=== PATIENT | male | born 1970 ===

== ENCOUNTER 2016-11-24 16:40 | Observation (INO) | payer OTHER ==
[~2016-11-24] VITALS: Ht 180.3 cm; Wt 99.4 kg
--- NOTE | 2016-11-24 19:11 | DIAGNOSTIC IMAGING REPORT ---
PROCEDURE: CT ABD/PELVIS WITH CONTRAST CLINICAL INDICATION: ABDOMINAL PAIN TECHNIQUE: 125 ml of Isovue 300 were injected intravenously and axial images were obtained of the entire abdomen and pelvis with sagittal and coronal reformations. COMPARISON: None. FINDINGS: ABDOMEN: Minor left basilar atelectasis. Heart size is normal. Punctate gallstone. Liver, pancreas, spleen, adrenal glands and kidneys are normal. Mild atherosclerosis of the aorta. Decompressed large bowel. PELVIS: Enlarged appendix (1.1 cm) with minor infiltration of the adjacent mesenteric fat. Normal prostate and bladder. Small fat filled left inguinal hernia. No free fluid or free air. L2 punctate sclerotic lesion, possibly a bone island. IMPRESSION: 1. Findings suggestive of acute appendicitis. 2. Punctate gallstone 3. Results discussed with Dr. Avitia All CT scans at this facility use dose modulation, iterative reconstruction, and/or weight-based dosing when appropriate to reduce radiation dose to as low as reasonably achievable.
--- NOTE | 2016-11-24 19:44 | ED ORDER SUMMARY ---
..... Patient: ERNESTO CURRAN JR OrderSheet [facility] VisitID: [id number] [place] [address] 46y, M Registration Date/Time: 11/24/2016 ORDER SHEET Weight: 90.7 kg (stated) Allergies: Sulfa Antibiotics GENERAL ORDERS: CBC w Diff Urgent (17:06 11/24/2016 Nii KNAPP) (Ack 17:07 PWeiler ER Tech1) CMP Urgent (17:11/24/2016 Nii KNAPP) (Ack 17:07 PWeiler ER Tech1) UA-Culture if indicated Urgent (17:06 11/24/2016 Nii KNAPP) (Ack 17:07 PWeiosvaldo ER Tech1) Amylase Urgent (17:06 11/24/2016 Nii KNAPP) (Ack 17:07 PWeiler ER Tech1) Lipase Urgent (17:06 11/24/2016 Nii KNAPP) (Ack 17:07 PWeiler ER Tech1) CT Abd/Pel w Cont (No) (See report) Urgent (18:41 11/24/2016 Nii KNAPP) (Ack 18:45 PWeiler ER Tech1) (19:03 MCabell) MEDICATION ORDERS: Unasyn IV 3 gm/100mL (NOW) (19:45 11/24/2016 Nii KNAPP) (20:51 SSambou R.N.) IV FLUIDS: IV Saline Lock (17:06 11/24/2016 Nii KNAPP) (17:32 SSambou R.N.) IV NS : initial bolus 1000 mL (1000 mL/hr), then 200 mL/hr for 4h (NOW); Urgent (18:40 11/24/2016 Nii KNAPP) (19:05 SSambou R.N.) Dilaudid IV 0.5 mg (HIGH ALERT MEDICATION, NOW) (18:40 11/24/2016 Nii KNAPP) (19:06 SSambsathya R.N.) Zofran IV 4 mg (NOW) (18:40 11/24/2016 Nii KNAPP) (19:06 SSambou R.N.) Protonix IVP 40mg 40 mg (Mix in NS 10ml over 2min) (18:42 11/24/2016 Nii KNAPP) (19:07 Marybeth Guardado) Flagyl IV 500 mg/100mL (NOW) (19:45 11/24/2016 Nii KNAPP) (20:27 Marybeth Guardado) ORDER SHEET NOTES: [Electronically signed by Sheriff Geo Ferguson (20:55 11/24/2016)] [Electronically signed by Dano Avitia MD (09:32 11/25/2016)] [Electronically locked/signed by Sheriff Geo Ferguson (20:55 11/24/2016)]
--- NOTE | 2016-11-24 19:44 | ED CLINICAL REPORT ---
Clinical Report - Physicians/Mid Levels [facility] [address] [place] [address] 11/24/2016 16:43 Patient: ERNESTO CURRAN JR Time Seen: 17:05. Arrived- By private vehicle. Historian- patient. HISTORY OF PRESENT ILLNESS Chief Complaint: ABDOMINAL PAIN. At its maximum, severity described as 9 / 10. When seen in the E.D., severity described as 9 / 10. Modifying factors- worsened by supine position. Relieved by upright position. It is described as burning. No radiation. It is described as located in the lower abdomen. This started today and is still present. It was abrupt in onset and has been constant. No nausea, vomiting or diarrhea. REVIEW OF SYSTEMS Last bowel movement: today. No chills, fever, sweats, calf pain or chest pain. No difficulty breathing, pedal edema or palpitations. He has had a mild cough. All systems otherwise negative, except as recorded above. PAST HISTORY PCP - None. Problems: Hallucinations. Additional Surgeries: Hernia Repair. Inguinal Hernia Repair. Medications: None. Allergies: Sulfa Antibiotics. SOCIAL HISTORY Current every day heavy tobacco smoker (cigarette)- less than 1 pack per day. No alcohol use or drug use. FAMILY HISTORY Hypertension in first-degree relative (father) and grandparent; cancer in first-degree relative (mother). ADDITIONAL NOTES The nursing notes have been reviewed. PHYSICAL EXAM Vital Signs: 11/24/2016 17:02 BP: 147/84. HR: 74. RR: 18. O2 saturation: 98%. Temp: 98 F. Pain level now: 8/10. Have been reviewed. Appearance: Alert. Eyes: Pupils equal, round and reactive to light. ENT: Pharynx normal. Neck: Normal inspection. Neck supple. CVS: Normal heart rate and rhythm. Heart sounds normal. Respiratory: No respiratory distress. Breath sounds normal. Abdomen: Soft. Moderate tenderness in the right lower quadrant and lower abdomen. Back: Normal inspection. No CVA tenderness. Skin: Skin warm and dry. Normal skin color. Normal skin turgor. Extremities: Extremities exhibit normal ROM. No calf tenderness. No lower extremity edema. LABS, X-RAYS, AND EKG Abdominal CT: IMPRESSION: 1. Findings suggestive of acute appendicitis. 2. Punctate gallstone. The study was interpreted contemporaneously by me and discussed with the radiologist. Laboratory Tests: CBC w Diff: (JOSE: 11/24/2016 17:40) ( [facility] 11/24/2016 17:53) Final results Test Result Flag Units (Reference) WHITE BLOOD COUNT 14.3 H K/uL (4.5-11.5) RED BLOOD COUNT 5.31 M/uL (4.50-5.90) HEMOGLOBIN 16.0 gm/dL (13.5-17.5) HEMATOCRIT 47.3 % (41.0-53.0) MEAN CELL VOLUME 89 fL (80-100) MEAN CORPUSCULAR HGB 30 pg (26-34) MEAN CORPUSCULAR HGB CONC 34 g/dL (31-37) RED CELL DISTRIBUTION WIDTH 13.8 % (11.6-14.8) PLATELET COUNT 328 K/uL (150-400) NEUTROPHIL % 82.0 H % (50-75) LYMPH % 12.4 L % (25-40) MONO % 4.6 % (3-14) EOSINOPHIL % 0.7 % (0-4) BASOPHIL % 0.3 % (0-2) CMP: (JOSE: 11/24/2016 17:40) ( [facility] 11/24/2016 18:12) Final results Test Result Flag Units (Reference) GLUCOSE 89 mg/dL (70-110) BUN 14 mg/dL (7-18) CREATININE 1.0 mg/dL (0.6-1.3) Estimated GFR >60 mL/min Estimated GFR- >60 mL/min Note: Persistent reduction over 3 months in eGFR<60 mL/min/1.73 m2 defines CKD. Patients with eGFR values>=60 mL/min/1.73 m2 may also have CKD if evidence ofpersistent proteinuria. Additional information may be foundat www.kidney.org. SODIUM 139 mmol/L (136-145) POTASSIUM 3.8 mmol/L (3.5-5.1) CHLORIDE 103 mmol/L (98-107) CARBON DIOXIDE 29 mmol/L (21-32) CALCIUM 8.8 mg/dL (8.5-10.1) TOTAL PROTEIN 7.6 g/dL (6.4-8.2) ALBUMIN 4.0 g/dL (3.3-5.0) BILIRUBIN, TOTAL 0.3 mg/dL (0.0-1.0) ALKALINE PHOSPHATASE 176 H U/L (46-116) AST (SGOT) 26 U/L (15-37) ALT (SGPT) 32 U/L (12-78) LIPASE 106 U/L (73-393) AMYLASE 26 U/L (25-115) . PROGRESS AND PROCEDURES Course of Care: Patient is stable. Consult obtained. Sheryl. Case discussed. Phone consult only. Will see patient in the hospital. Patient/family counseled. Old medical records ordered. Old records unavailable. Disposition orders written (in [employer] and Acute Appy orders). Disposition: Admitted. Observation. CLINICAL IMPRESSION Appendicitis. (Electronically signed by Dano Avitia MD 11/25/2016 9:32)
--- NOTE | 2016-11-24 19:44 | ED ORDER SUMMARY ---
..... Patient: ERNESTO CURRAN JR OrderSheet [facility] VisitID: [id number] [place] [address] 46y, M Registration Date/Time: 11/24/2016 ORDER SHEET Weight: 90.7 kg (stated) Allergies: Sulfa Antibiotics GENERAL ORDERS: CBC w Diff Urgent (17:06 11/24/2016 Nii KNAPP) (Ack 17:07 PWeiler ER Tech1) CMP Urgent (17:11/24/2016 Nii KNAPP) (Ack 17:07 PWeiler ER Tech1) UA-Culture if indicated Urgent (17:06 11/24/2016 Nii KNAPP) (Ack 17:07 PWeiosvaldo ER Tech1) Amylase Urgent (17:06 11/24/2016 Nii KNAPP) (Ack 17:07 PWeiler ER Tech1) Lipase Urgent (17:06 11/24/2016 Nii KNAPP) (Ack 17:07 PWeiler ER Tech1) CT Abd/Pel w Cont (No) (See report) Urgent (18:41 11/24/2016 Nii KNAPP) (Ack 18:45 PWeiler ER Tech1) (19:03 MCabell) MEDICATION ORDERS: Unasyn IV 3 gm/100mL (NOW) (19:45 11/24/2016 Nii KNAPP) (20:51 SSambou R.N.) IV FLUIDS: IV Saline Lock (17:06 11/24/2016 Nii KNAPP) (17:32 SSambou R.N.) IV NS : initial bolus 1000 mL (1000 mL/hr), then 200 mL/hr for 4h (NOW); Urgent (18:40 11/24/2016 Nii KNAPP) (19:05 SSambou R.N.) Dilaudid IV 0.5 mg (HIGH ALERT MEDICATION, NOW) (18:40 11/24/2016 Nii KNAPP) (19:06 SSambsathya R.N.) Zofran IV 4 mg (NOW) (18:40 11/24/2016 Nii KNAPP) (19:06 SSambou R.N.) Protonix IVP 40mg 40 mg (Mix in NS 10ml over 2min) (18:42 11/24/2016 Nii KNAPP) (19:07 Marybeth Guardado) Flagyl IV 500 mg/100mL (NOW) (19:45 11/24/2016 Nii KNAPP) (20:27 Marybeth Guardado) ORDER SHEET NOTES: [Electronically signed by Sheriff Geo Ferguson (20:55 11/24/2016)] [Electronically signed by Dano Avitia MD (09:32 11/25/2016)] [Electronically locked/signed by Sheriff Geo Ferguson (20:55 11/24/2016)]
--- NOTE | 2016-11-24 19:44 | ED NURSING NOTES ---
Clinical Report - Nurses [facility] [place] [address] 11/24/2016 16:43 Patient: ERNESTO CURRAN JR TRIAGE Triage time 17:02. Chief Complaint: ABDOMINAL PAIN. --17:07 Sheriff Ferguson R.N. 17:02 11/24/16. BP: 147/84. HR: 74. RR: 18. O2 saturation: 98%. Temp: 98 F. Pain level now: 01/14. --17:07 Sheriff Ferguson R.N. Weight: 90.7 kg stated. Height/Length: 71 inches Per Patient. BMI: 27.9. --17:06 Sheriff Ferguson R.N. Medications None. --17:03 Sheriff Ferguson R.N. Allergies Sulfa Antibiotics. --17:04 Sheriff Ferguson R.N. History Arrived by private vehicle. Historian: patient. Unaccompanied. ( Started at 10am after eating breakfast. No nausea and vomiting.). SURGERY HX: Hernia repair. Inguinal hernia repair. ( Right jaw). SOCIAL HX: Light tobacco smoker- less than 1/2 a pack per day. No alcohol use or drug use. FALL RISK ASSESSMENT: Fall risk assessment completed. No fall risk identified. NUTRITIONAL RISK ASSESSMENT: The nutritional risk assessment revealed no deficiencies. FUNCTIONAL ASSESSMENT: Functional assessment: no impairments noted. LEARNING NEEDS ASSESSMENT: The learning needs assessment revealed no barriers. SKIN INTEGRITY ASSESSMENT: Skin integrity risk assessment completed. No skin integrity risk identified. --17:07 Sheriff Ferguson R.N. PROBLEMS: Hallucinations. --17:05 Sheriff Ferguson R.N. Interventions ID band on patient. --17:07 Sheriff Ferguson R.N. PHYSICAL ASSESSMENT Ambulatory to room. GENERAL / NEURO / PSYCH: Alert. Oriented X 4. Appears in no acute distress. HEENT: Mucous membranes are pink. RESPIRATORY: Respirations not labored. CVS: Capillary refill less than 2 seconds. SKIN: Skin is warm and dry. --17:08 Sheriff Ferguson R.N. NURSING PROGRESS NOTES Two patient identifiers checked. Call light placed in reach. Side rails up x 2. Bed placed in lowest position. Brakes of bed on. --17:08 Sheriff Ferguson R.N. 17:32 11/24/2016 Site #1 started via IV in the right wrist with an 20g angiocath, with aseptic technique and good blood return; one attempt. Blood drawn: rainbow set. Labeled in the presence of the patient and sent to the lab. Saline lock flushed with 10 mL saline. --17:32 Sheriff Ferguson R.N. 19:05 11/24/2016 Started bag #1 1000 mL IV Fluids IV NS (Saline); at 1000 mL/hr over 1 hour(s) via site #1. Allergies verified and confirmed 5 rights. IV patency established. IV site checked: no pain, redness, or swelling. IV flushed thoroughly pre- and post-medication administration. --19: Sheriff Ferguson R.N. 19:11/24/2016 Dilaudid (HYDROmorphone HCl PF) IVP 0.5 mg given over 1 minute(s) via site #1. Allergies verified, confirmed 5 rights and sedative warning given to the patient. IV patency established. IV site checked: no pain, redness, or swelling. IV flushed thoroughly pre- and post-medication administration. IVP given by RN. --19: Sheriff Ferguson R.N. 19:11/24/2016 Zofran (Ondansetron HCl) IVP 4 mg given over 1 hour(s) via site #1. Allergies verified and confirmed 5 rights. IV patency established. IV site checked: no pain, redness, or swelling. IV flushed thoroughly pre- and post-medication administration. --19: Sheriff Ferguson R.N. 19:11/24/2016 PROTONIX 40MG (Pantoprazole Sodium) IVP 40 mg given over 2 minute(s) via site #1. Allergies verified and confirmed 5 rights. IV patency established. IV site checked: no pain, redness, or swelling. IV flushed thoroughly pre- and post-medication administration. IVP given by RN. --19:07 Sheriff Ferguson R.N. ( assisted pt to ambulate to restroom, urine sample requested. pt verbalizes understanding). --20:18 Shameka Akhtar R.N. 20:27 11/24/2016 Started 500 mg of Flagyl (MetroNIDAZOLE in NaCl) IVPB in bag #1 100 mL; at 100 mL/hr over 1 hour(s) via site #1 via IV pump. Allergies verified and confirmed 5 rights. IV patency established. IV site checked: no pain, redness, or swelling. IV flushed thoroughly pre- and post-medication administration. --20:27 Sheriff Ferguson R.N. 20:51 11/24/2016 Started 3 gm of Unasyn (Ampicillin-Sulbactam Sodium) IVPB in bag #1 100 mL; at 200 mL/hr over 30 minute(s) via site #1 via IV pump. Allergies verified and confirmed 5 rights. IV patency established. IV site checked: no pain, redness, or swelling. IV flushed thoroughly pre- and post-medication administration. --20:51 Sheriff Ferguson R.N. DISPOSITION / DISCHARGE Admitted to the Critical Care Unit (2050 PM). Transported via stretcher by transport team with IV. Report was given to a nurse via a phone call. Report included patient's care, treatment, medications, reviewed medication reconcilliation, and condition (including any recent changes or anticipated changes). All questions were answered. Report was acknowledged and care was transferred. Patient's personal items include: shirt, pants, socks and shoes; items were given to the patient and transported with the patient. --20:55 Sheriff Ferguson R.N. 20:51 11/24/16. BP: 137/85. HR: 73. RR: 20. O2 saturation: 98%. Temp: 98.2 F. --20:55 Sheriff Ferguson R.N. Locked/Released at 11/24/2016 20:55 by Sheriff Ferguson R.N.
[2016-11-24 21:00] VITALS: BP 128/66
[2016-11-24] MEDS ORDERED: ESCITALOPRAM OX10 MG PO (21:46)
[2016-11-24] MEDS ORDERED: IMITREX25 MG PO (21:46)
[2016-11-24] MEDS ORDERED: RISPERDAL0.25 MG PO (21:47)
[2016-11-24 23:44] VITALS: BP 101/59
[2016-11-25] VITALS (8 sets, daily range): BP systolic 94–120; BP diastolic 57–81
--- NOTE | 2016-11-25 09:32 | ED MAR SUMMARY ---
..... Medication Administration Record [facility] [address] [place] [address] Patient: ERNESTO CURRAN Visit ID: [id number] 46y, M Weight: 90.7 kg Height/Length: 71 in BMI: 27.9 ALLERGIES: Sulfa Antibiotics Start 19:11/24/2016 Sheriff Ferguson R.N. Medication Administered: IV NS (SALINE), Dose: IV Fluids over 1 hour(s), Rate: 1000 mL/hr, Dispensed: 1000 mL bag, Site: #1 right wrist. Medication Ordered: IV NS : initial bolus 1000 mL (1000 mL/hr), then 200 mL/hr for 4h (NOW); Urgent. Given :11/24/2016 Sheriff Ferguson R.N. Medication Administered: DILAUDID [IVP] (HYDROMORPHONE HCL PF), Dose: 0.5 mg IVP over 1 minute(s), Site: #1 right wrist. Medication Ordered: Dilaudid IV 0.5 mg (HIGH ALERT MEDICATION, NOW). Given 19:11/24/2016 Sheriff Ferguson R.N. Medication Administered: ZOFRAN [IVP] (ONDANSETRON HCL), Dose: 4 mg IVP over 1 hour(s), Site: #1 right wrist. Medication Ordered: Zofran IV 4 mg (NOW). Given 19:11/24/2016 Sheriff Ferguson R.N. Medication Administered: PROTONIX 40MG [IVP] (PANTOPRAZOLE SODIUM), Dose: 40 mg IVP over 2 minute(s), Site: #1 right wrist. Medication Ordered: Protonix IVP 40mg 40 mg (Mix in NS 10ml over 2min). Start 20:27 11/24/2016 Sheriff Ferguson R.N. Medication Administered: FLAGYL [IVPB] (METRONIDAZOLE IN NACL), Dose: 500 mg IVPB over 1 hour(s), Rate: 100 mL/hr, Dispensed: 100 mL bag, Site: #1 right wrist. Medication Ordered: Flagyl IV 500 mg/100mL (NOW). Start 20:51 11/24/2016 Sheriff Ferguson R.N. Medication Administered: UNASYN [IVPB] (AMPICILLIN-SULBACTAM SODIUM), Dose: 3 gm IVPB over 30 minute(s), Rate: 200 mL/hr, Dispensed: 100 mL bag, Site: #1 right wrist. Medication Ordered: Unasyn IV 3 gm/100mL (NOW).
--- NOTE | 2016-11-25 09:32 | ED MED RECONCILIATION SUMMARY ---
Patient: ERNESTO CURRAN JR Medication Reconciliation Report [facility] VisitID: [id number] [address] [place] [address] 46y, M Registration Date/Time: 11/24/2016 Weight: 90.7 kg Height/Length: 71 in. BMI: 27.9 ALLERGIES: Sulfa Antibiotics The patient's Home Medications are listed below: NONE. The source(s) of the original Home Medication information: Not obtained. The following Medications were given to the patient in the Emergency Department: IV NS IV Fluids bolus 0, then 1000 mL/hr, administered: 11/24/2016 7:05:00 PM Dilaudid [IVP] IVP 0.5 mg, administered: 11/24/2016 7:06:00 PM Zofran [IVP] IVP 4 mg, administered: 11/24/2016 7:06:00 PM PROTONIX 40MG [IVP] IVP 40 mg, administered: 11/24/2016 7:07:00 PM Flagyl [IVPB] IVPB bolus 0, then 500 mg 100 mL/hr, administered: 11/24/2016 8:27:00 PM Unasyn [IVPB] IVPB bolus 0, then 3 gm 200 mL/hr, administered: 11/24/2016 8:51:00 PM The following Medications were prescribed to the patient: None.
--- NOTE | 2016-11-25 09:32 | ED MED RECONCILIATION SUMMARY ---
Patient: ERNESTO CURRAN JR Medication Reconciliation Report [facility] VisitID: [id number] [address] [place] [address] 46y, M Registration Date/Time: 11/24/2016 Weight: 90.7 kg Height/Length: 71 in. BMI: 27.9 ALLERGIES: Sulfa Antibiotics The patient's Home Medications are listed below: NONE. The source(s) of the original Home Medication information: Not obtained. The following Medications were given to the patient in the Emergency Department: IV NS IV Fluids bolus 0, then 1000 mL/hr, administered: 11/24/2016 7:05:00 PM Dilaudid [IVP] IVP 0.5 mg, administered: 11/24/2016 7:06:00 PM Zofran [IVP] IVP 4 mg, administered: 11/24/2016 7:06:00 PM PROTONIX 40MG [IVP] IVP 40 mg, administered: 11/24/2016 7:07:00 PM Flagyl [IVPB] IVPB bolus 0, then 500 mg 100 mL/hr, administered: 11/24/2016 8:27:00 PM Unasyn [IVPB] IVPB bolus 0, then 3 gm 200 mL/hr, administered: 11/24/2016 8:51:00 PM The following Medications were prescribed to the patient: None.
--- NOTE | 2016-11-25 09:32 | ED MAR SUMMARY ---
..... Medication Administration Record [facility] [address] [place] [address] Patient: ERNESTO CURRAN Visit ID: [id number] 46y, M Weight: 90.7 kg Height/Length: 71 in BMI: 27.9 ALLERGIES: Sulfa Antibiotics Start 19:11/24/2016 Sheriff Ferguson R.N. Medication Administered: IV NS (SALINE), Dose: IV Fluids over 1 hour(s), Rate: 1000 mL/hr, Dispensed: 1000 mL bag, Site: #1 right wrist. Medication Ordered: IV NS : initial bolus 1000 mL (1000 mL/hr), then 200 mL/hr for 4h (NOW); Urgent. Given :11/24/2016 Sheriff Ferguson R.N. Medication Administered: DILAUDID [IVP] (HYDROMORPHONE HCL PF), Dose: 0.5 mg IVP over 1 minute(s), Site: #1 right wrist. Medication Ordered: Dilaudid IV 0.5 mg (HIGH ALERT MEDICATION, NOW). Given 19:11/24/2016 Sheriff Ferguson R.N. Medication Administered: ZOFRAN [IVP] (ONDANSETRON HCL), Dose: 4 mg IVP over 1 hour(s), Site: #1 right wrist. Medication Ordered: Zofran IV 4 mg (NOW). Given 19:11/24/2016 Sheriff Ferguson R.N. Medication Administered: PROTONIX 40MG [IVP] (PANTOPRAZOLE SODIUM), Dose: 40 mg IVP over 2 minute(s), Site: #1 right wrist. Medication Ordered: Protonix IVP 40mg 40 mg (Mix in NS 10ml over 2min). Start 20:27 11/24/2016 Sheriff Ferguson R.N. Medication Administered: FLAGYL [IVPB] (METRONIDAZOLE IN NACL), Dose: 500 mg IVPB over 1 hour(s), Rate: 100 mL/hr, Dispensed: 100 mL bag, Site: #1 right wrist. Medication Ordered: Flagyl IV 500 mg/100mL (NOW). Start 20:51 11/24/2016 Sheriff Ferguson R.N. Medication Administered: UNASYN [IVPB] (AMPICILLIN-SULBACTAM SODIUM), Dose: 3 gm IVPB over 30 minute(s), Rate: 200 mL/hr, Dispensed: 100 mL bag, Site: #1 right wrist. Medication Ordered: Unasyn IV 3 gm/100mL (NOW).
--- NOTE | 2016-11-25 09:32 | ED DISCHARGE INSTRUCTIONS ---
Patient: ERNESTO CURRAN JR General Instructions [facility] VisitID: [id number] [address] [place] [address] 46y, M Registration Date/Time: 11/24/2016 Appendicitis. (Electronically signed by Dano Avitia MD 11/25/2016 9:32)
--- NOTE | 2016-11-25 09:32 | ED DISCHARGE INSTRUCTIONS ---
Patient: ERNESTO CURRAN JR General Instructions [facility] VisitID: [id number] [address] [place] [address] 46y, M Registration Date/Time: 11/24/2016 Appendicitis. (Electronically signed by Dano Avitia MD 11/25/2016 9:32)
[2016-11-25] MEDS ORDERED: NORCO1 TA1 PO (13:12)
--- NOTE | 2016-11-25 13:13 | Provider's Discharge Care Plan ---
Problem, Goal, Plan Problem List 1. Appendicitis
--- NOTE | 2016-11-25 13:13 | Provider's Discharge Care Plan ---
Problem, Goal, Plan Problem List 1. Appendicitis
--- NOTE | 2016-11-25 13:48 | CONSULTATION REPORT ---
DATE OF CONSULTATION: 11/25/2016 CHIEF COMPLAINT: 1. Right lower quadrant abdominal pain HISTORY OF PRESENT ILLNESS: The patient is a 46-year-old man who presented to the emergency department yesterday evening. He began experiencing mid abdominal vague discomfort and burning sensation at about 12:00 yesterday. This got worse and localized more to the right lower quadrant. He reports no diarrhea. He reports no vomiting. He has not had previous abdominal surgery. MEDICAL/SURGICAL HISTORY: Medical problems: None. Past surgery: Right inguinal hernia repair in 2008 and removal of metal foreign body, right face. He also reports that he had a "violent" awakening from anesthesia in his previous experiences. MEDICATIONS: 1. He takes oral Sumatriptan for migraines, dosage unknown. 2. The patient reports in the past he has been on risperidone, but is currently out of this medication. ALLERGIES: 1. SULFA WHICH CAUSED HIVES. 2. HE ALSO DEVELOPED NAUSEA AND VOMITING WITH ONIONS. 3. SYNCOPE AFTER CONSUMING GARLIC. SOCIAL HISTORY: The patient is single and was recently incarcerated in [place] and was released from that correction on 11/03/2016. He smokes about 1/2 pack per day of cigarettes. He does not take alcohol. He is currently working at the local [employer]. He is a former meth user, who is now clean for a number of years. FAMILY HISTORY: His mother had some type of unknown cancer, and he is unaware of the rest of his history, as he is currently estranged from his family. REVIEW OF SYSTEMS: Greater than 12-point review of systems was obtained. The patient reported no additional symptoms other than the ones mentioned in the history of present illness, including eyesight, hearing, sinus problems, pulmonary problems such as cough, dyspnea, hemoptysis, cardiac palpitations or chest pain, diarrhea, constipation, hematochezia, hematemesis extremity problems. PHYSICAL EXAMINATION: GENERAL: He is alert and cooperative. He has multiple tattoos. He is oriented to time and place and speaks appropriately. HEENT: His ears and nose demonstrate no gross external lesions. Eyes are equal. He is anicteric. NECK: Without palpable masses or thyromegaly. CHEST: Clear to auscultation without rales. HEART: Regular, without murmur or gallop. ABDOMEN: Reveals localized tenderness in the right lower quadrant, with involvement of involuntary guarding on palpation at McBurney's point. EXTREMITIES: Symmetric, and he appears to move without restriction. VITAL SIGNS: Temperature 98.2, pulse of 69, respirations 18, blood pressure 94/ 57, 98% room air saturation. LAB/IMAGING: Laboratory tests, his white count was elevated at 14.3, hemoglobin and hematocrit 16 and 47. Chemistries, including electrolytes, are normal, with a slightly elevated alkaline phosphatase. His amylase and lipase are normal. Urinalysis reveals no significant red cells or white cells. His CT scan demonstrates an enlarged appendix with minor inflammatory infiltrate, with the impression of findings suggestive of acute appendicitis. He has a punctate gallstone. IMPRESSION: 1. Acute appendicitis PLAN: I recommended laparoscopic appendectomy. I talked to the patient about alternatives, benefits and risks, including antibiotic therapy without surgery, as well as risks of infection, bleeding, scar, pain, damage to local structures and alternative diagnoses being present, besides appendix, as well as the remote possibility of open surgery. The patient would like to proceed with surgery as described to him.
--- NOTE | 2016-11-25 13:55 | OPERATIVE REPORT ---
DATE OF SURGERY: 11/25/2016 SURGEON: Oswald Saucedo MD PREOPERATIVE DIAGNOSIS: 1. Acute appendicitis POSTOPERATIVE DIAGNOSIS: 1. Acute appendicitis PROCEDURE PERFORMED: 1. Laparoscopic appendectomy ANESTHESIA: General. INDICATIONS: The patient is a 46-year-old man presenting with a 1-day history of worsening right lower quadrant abdominal pain. SURGICAL TECHNIQUE: The patient was taken to the operating room, where a general anesthetic was administered and the patient prepped and draped in usual sterile fashion. There was no Rogers catheter placed. An orogastric tube, IV antibiotics, and sequential compression devices were in place. Local anesthetic of 0.5% Marcaine was infiltrated and an intraumbilical incision made. A 10 mm cannula was passed after insufflation with a Veress needle. The appendix was visualized and found to be inflamed, but not perforated. The mesoappendix was taken down with the Thunderbeat device, and 2 additional 5 mm cannulas were placed in the lower midline for the surgery. The 5 mm scope was transferred to the lowest one. After taking down the mesoappendix, the base of the appendix was clipped with 2 Hem-o-Edna clips and the specimen side clipped. The appendix was partially transected and bipolar cautery applied to the exposed mucosa. The appendix was fully transected and drawn out through the 10 mm port. Marcaine was instilled, gas was evacuated, and the umbilical site closed with a single interrupted subcuticular 4-0 Vicryl suture. Steri-Strips and dressings were applied, and the patient left in good condition.
== END 2016-11-25 17:45 | disposition home or self-care (01) ==
LOC: ED SRH 16:40 → TRANS SRH 19:51 → CC SRH 19:51
PROVIDERS: ADMIT Surgery
PROC: 0DTJ4ZZ Resection of Appendix, Percutaneous Endoscopic Approach (ICD-10-PCS; principal; 2016-11-25 12:00)
DX: K35.80 Unspecified acute appendicitis (principal); F17.210 Nicotine dependence, cigarettes, uncomplicated
CPT/HCPCS: 29229; 29250; 29259; 29264; 50002; 60001; 70002; 80102; 80212; 80248; 82897; 83343; 83587; 83919; 83982; 84038; 90004; 90100; 90469; 92132; 92235; 92530; 95059

== ENCOUNTER 2016-12-25 14:41 | Emergency (ER) | payer OTHER ==
[~2016-12-25 14:41] MED LIST: ESCITALOPRAM OX10 MG PO; IMITREX25 MG PO; NORCO1 TA1 PO; RISPERDAL0.25 MG PO
--- NOTE | 2016-12-25 15:51 | DIAGNOSTIC IMAGING REPORT ---
PROCEDURE: XR CHEST 1 VIEW INDICATION: CHEST PAIN TECHNIQUE: Single view chest. 1524 hours COMPARISON: None. FINDINGS: The cardiomediastinal contour and central vasculature are normal. Mild left base atelectatic change. The lungs are otherwise clear without focal consolidation, pleural effusion or pneumothorax. The osseous structures are intact. IMPRESSION: 1. No evidence of acute cardiopulmonary disease.
--- NOTE | 2016-12-25 17:17 | ED CLINICAL REPORT ---
Clinical Report - Physicians/Mid Levels [facility] [address] [place] [address] 12/25/2016 14:44 Patient: ERNESTO CURRAN JR Time Seen: 14:55; initial patient contact, initial documentation, patient care assumed. Arrived- By private vehicle. Historian- patient. HISTORY OF PRESENT ILLNESS Chief Complaint: CHEST PAIN and DISCOMFORT. At its maximum, severity described as severe. When seen in the E.D., it was gone. Modifying factors. Not worsened by anything. Not relieved by anything. It is described as "pain" and it is described as located in the central chest area and radiating to the left hand. This started about 2 - 3 days ago and is now gone. Onset during sleep; happens at night when laying down. No nausea, vomiting, difficulty breathing or diaphoresis. No additional chest pain. Similar symptoms previously: None. Recent medical care: Not recently seen/assessed. REVIEW OF SYSTEMS All systems otherwise negative, except as recorded above. PAST HISTORY See nurses notes. PROBLEMS: Appendicitis. Hallucinations. --14:53 Vera Goff R.N. ADDITIONAL SURGERIES: Appendectomy. Cheek. Hernia Repair. Inguinal Hernia Repair. --14:53 Vera Goff R.N. SOCIAL HISTORY Heavy tobacco smoker. No alcohol use or drug use. Is a local resident. FAMILY HISTORY History of heart disease in multiple family members in first-degree relative (father). ADDITIONAL NOTES The nursing notes have been reviewed with agreement regarding the chief complaint, HPI, ROS, PMH and patient medications and allergies. PHYSICAL EXAM Vital Signs: 12/25/2016 14:49 BP: 117/78. HR: 108. RR: 18. O2 saturation: 96%. Temp: 97.6 F. Pain level now: 0/10. Have been reviewed as abnormal and appear to be correct. Blood pressure normal. Tachycardic. Respiratory rate normal. Temperature normal. Oxygen saturation normal. Appearance: Alert. Oriented X3. No acute distress. Eyes: Pupils equal, round and reactive to light. Eyes normal inspection. Neck: Normal inspection. Neck supple. CVS: Heart rate / rhythm abnormal. Tachycardia (ventricular rate = 110). Heart sounds normal. Pulses normal. Respiratory: No respiratory distress. Breath sounds normal. Chest nontender. Abdomen: Soft and nontender. Back: Normal external inspection. Skin: Skin warm and dry. Normal skin color. No rash. Normal skin turgor. Extremities: Extremities exhibit normal ROM. No lower extremity edema. Neuro: Oriented X 3. No motor deficit. No sensory deficit. LABS, X-RAYS, AND EKG EKG: EKG time: (1452). No acute process. No acute ischemia. Regular narrow-complex tachycardia (111 ventricular rate). Sinus tachycardia. Normal EKG. The study has been interpreted contemporaneously by me (and Dr Coronado). The EKG appears to be a good tracing. Chest X-ray: Normal Chest X-Ray. (IMPRESSION: 1. No evidence of acute cardiopulmonary disease. Electronically Final signed by:Carlotta Parikh MD 12/25/2016 3:51:17 PM). The X-rays were interpreted by the radiologist and contemporaneously by me. Interpretation time: 17:17. Laboratory Tests: CBC w Diff: (JOSE: 12/25/2016 15:05) ( MsgRcvd 12/25/2016 15:15) Final results Test Result Flag Units (Reference) WHITE BLOOD COUNT 8.0 K/uL (4.5-11.5) RED BLOOD COUNT 5.21 M/uL (4.50-5.90) HEMOGLOBIN 15.7 gm/dL (13.5-17.5) HEMATOCRIT 46.5 % (41.0-53.0) MEAN CELL VOLUME 89 fL (80-100) MEAN CORPUSCULAR HGB 30 pg (26-34) MEAN CORPUSCULAR HGB CONC 34 g/dL (31-37) RED CELL DISTRIBUTION WIDTH 13.5 % (11.6-14.8) PLATELET COUNT 311 K/uL (150-400) NEUTROPHIL % 70.6 % (50-75) LYMPH % 22.8 L % (25-40) MONO % 5.1 % (3-14) EOSINOPHIL % 1.1 % (0-4) BASOPHIL % 0.4 % (0-2) [id number]: (JOSE: 12/25/2016 15:05) ( [facility] 12/25/2016 15:29) Final results Test Result Flag Units (Reference) D-DIMER QUANTITATIVE 0.31 ug/mLFEU (0.27-0.52) The primary value of this quantitative assay relates toits negative predictive value (i.e. exclusion) of pulmonaryembolism/deep vein thrombosis/DIC.Elevated levels of d-dimer may also occur with:, age, cancer, inflammation, liver disease,post-op, infection, hematoma, coronary disease, peripheralarteriopathy, bleeding disorders and thrombolytic treatment.Results should be correlated with other clinical andradiological data.Testing Methodology: Latex Immunoassay CPK: (JOSE: 12/25/2016 16:25) ( [facility] 12/25/2016 16:49) Final results Test Result Flag Units (Reference) CPK 124 U/L (24-260) TROPONIN I <0.05 L ng/mL (0.00-1.5) TROPONIN REFERENCE RANGE:<0.1 NEGATIVE0.1-1.5 INDETERMINANT>1.5 POSITIVE CMP: (JOSE: 12/25/2016 15:05) ( [facility] 12/25/2016 15:30) Final results Test Result Flag Units (Reference) GLUCOSE 163 H mg/dL (70-110) BUN 10 mg/dL (7-18) CREATININE 1.2 mg/dL (0.6-1.3) Estimated GFR >60 mL/min Estimated GFR- >60 mL/min Note: Persistent reduction over 3 months in eGFR<60 mL/min/1.73 m2 defines CKD. Patients with eGFR values>=60 mL/min/1.73 m2 may also have CKD if evidence ofpersistent proteinuria. Additional information may be foundat www.kidney.org. SODIUM 141 mmol/L (136-145) POTASSIUM 3.9 mmol/L (3.5-5.1) CHLORIDE 106 mmol/L (98-107) CARBON DIOXIDE 21 mmol/L (21-32) CALCIUM 8.6 mg/dL (8.5-10.1) TOTAL PROTEIN 7.1 g/dL (6.4-8.2) ALBUMIN 3.8 g/dL (3.3-5.0) BILIRUBIN, TOTAL 0.4 mg/dL (0.0-1.0) ALKALINE PHOSPHATASE 142 H U/L (46-116) AST (SGOT) 24 U/L (15-37) ALT (SGPT) 33 U/L (12-78) CPK 129 U/L (24-260) TROPONIN I <0.05 L ng/mL (0.00-1.5) TROPONIN REFERENCE RANGE:<0.1 NEGATIVE0.1-1.5 INDETERMINANT>1.5 POSITIVE . PROGRESS AND PROCEDURES Course of Care: 1630. pt updated on current results and reasoning for 2nd set of enzymes, pt resting quietly, nad, resp even and unlabored, vs stable. 12/25/2016 16:07 BP: 115/71. HR: 97. RR: 21. O2 saturation: 96%. Pain level now: 0/10. Vital Signs: have been reviewed as normal and appear to be correct. Patient counseled in person regarding the patient's stable condition, test results and diagnosis. 17:13. Differential Diagnosis: I considered muscle strain, costochondritis, myositis, myocardial infarction, intermediate coronary syndrome, unstable angina, angina, aortic dissection, mitral valve prolapse, pericarditis, palpitations, pulmonary embolism, pneumonia, pneumothorax, lung cancer, gastroesophageal reflux disease, esophagitis and esophageal spasm as a possible cause of chest pain in this patient. This is a partial list of diagnoses considered. (anxiety, substance abuse). Disposition: Discharged home in good and unchanged condition (17:17). Condition: good and stable. CLINICAL IMPRESSION Chest pain characterized as "discomfort" .12 lead EKG performed. INSTRUCTIONS Warnings: GENERAL WARNINGS: Return or contact your physician immediately if your condition worsens or changes unexpectedly, if not improving as expected, or if other problems arise. SPECIFICALLY, return if you develop chest, neck, jaw, shoulder, arm, or back pain, difficulty breathing, a fluttering sensation in your chest, lightheadedness, fainting, excessive fatigue, or sudden sweating. Follow-up: Follow up with your doctor in about two days even if well. Call for an appointment. Summary of care provided to patient. Understanding of the discharge instructions verbalized by patient. (Electronically signed by Lory Duarte A.R.N.P. 12/25/2016 19:04)
--- NOTE | 2016-12-25 17:17 | ED NURSING NOTES ---
Clinical Report - Nurses [facility] [address] [place] [address] 12/25/2016 14:44 Patient: ERNESTO CURRAN JR TRIAGE Triage time 14:49. Acuity: LEVEL 3. Chief Complaint: CHEST PAIN. Alert. No acute distress. LAURA COMA SCORE: Laura Coma Scale: 15- eyes open spontaneously (4); best verbal response- oriented x 4 (5); best motor response- obeys commands (6). --14:55 Vera Goff R.N. 14:49 12/25/16. BP: 117/78. HR: 108. RR: 18. O2 saturation: 96%. Temp: 97.6 F (oral). Pain level now: 0/10. --14:55 Vera Goff R.N. Weight: 92.9 kg stated. Height/Length: 69 inches Per Patient. BMI: 30.3. --14:53 Vera oGff R.N. Medications Citalopram Hydrobromide Oral (Tablet 10 mg), daily. --14:52 Vera Goff R.N. RisperiDONE Oral 1 mg, daily. --14:52 Vera Goff R.N. Medication/allergy information source: the patient. --14:55 Vera Goff R.N. Allergies Sulfa Antibiotics. --14:52 Vera Goff R.N. History Arrived by private vehicle. Historian: patient. Primary physician (Rupert). Onset. (about 2 days). Describes the quality as (intermittent). Relates location as in the central chest area. Notes pain level as 0/10 on arrival and 7/10 at maximum. Provoking / relieving factors: worsened by supine position. Relieved by nothing. The patient has had difficulty breathing. No sweating episodes, nausea or vomiting. SOCIAL HX: Heavy tobacco smoker- less than 1 pack per day. No alcohol use or drug use. FALL RISK ASSESSMENT: Fall risk assessment completed. No fall risk identified. FUNCTIONAL ASSESSMENT: Functional assessment: no impairments noted. LEARNING NEEDS ASSESSMENT: The learning needs assessment revealed no barriers. --14:55 Vera Goff R.N. PROBLEMS: Appendicitis. Hallucinations. --14:53 Vera Goff R.N. ADDITIONAL SURGERIES: Appendectomy. Cheek. Hernia Repair. Inguinal Hernia Repair. --14:53 Vera Goff R.N. Assessment GENERAL / NEURO / PSYCH: Alert. Oriented X 4. Appears in no acute distress. Patient appears calm and cooperative. RESPIRATORY: Respirations not labored. SKIN: Skin is warm and dry. --14:55 Vera Goff R.N. Interventions ID and allergy band on patient. To treatment room. --14:55 Vera Goff R.N. PHYSICAL ASSESSMENT 14:55 12/25/16. Ambulatory to room. Patient gowned. GENERAL / NEURO / PSYCH: Alert. Oriented X 4. Appears in no acute distress. RESPIRATORY: Respirations not labored. SKIN: Skin is warm and dry. --14:55 Vera Goff R.N. NURSING PROGRESS NOTES 14:56 12/25/16. windsmith, pulse oximeter and NIBP monitor placed on patient. Patient gowned. Head of bed elevated. Call light placed in reach. Side rails up x 1. Bed placed in lowest position. Brakes of bed on. --14:56 Vera Goff R.N. 15:00 12/25/16. CVS: Cardiac rhythm: sinus tachycardia. --15:00 Vera Goff R.N. EKG time: (1452). EKG was ordered, performed by a tech and shown to the ED physician. --15:04 Elvia Kovacs 15:11 12/25/2016 Site #1 started via IV in the left antecubital space with an 20g angiocath, with aseptic technique and good blood return; two attempts. Blood drawn: rainbow set. Labeled in the presence of the patient and sent to the lab. Saline lock flushed. --15:11 Yaima Qureshi R.N. The patient is calm and resting quietly. Overall patient status is the same- he states feels the same. RESPIRATORY: Denies difficulty breathing. No respiratory distress. CVS: Denies chest pain. SKIN: Skin is warm and dry. Skin color within normal limits. --16:07 Yaima Qureshi R.N. 16:07 12/25/16. BP: 115/71. HR: 97. RR: 21. O2 saturation: 96%. Pain level now: 0/10. --16:07 Yaima Qureshi R.N. 16:15 12/25/2016 IV Saline Lock Drip IV Discontinued: bag #1 infused. Total amount infused: 1000 mL. IV patency established. IV site checked: no pain, redness, or swelling. IV flushed thoroughly. --22:57 Yaima Qureshi R.N. DISPOSITION / DISCHARGE Departure time: 18:30 Dec 25 2016. Condition at departure: improved. No learning barriers present. Discharge instructions provided and reviewed with the patient. Reviewed referral to a primary care physician for followup. Patient verbalized understanding. Written instructions provided in Dutch. The patient was discharged home. He left the Emergency Department ambulatory and via private vehicle. Patient driving. FALL RISK ASSESSMENT: Fall risk assessment completed. No fall risk identified. --18:30 Yaima Qureshi R.N. 18:27 12/25/16. BP: 114/81. HR: 79. RR: 23. O2 saturation: 95%. Pain level now: 0/10. --18:30 Yaima Qureshi R.N. Locked/Released at 12/25/2016 22:57 by Yaima Qureshi R.N.
--- NOTE | 2016-12-25 17:17 | ED ORDER SUMMARY ---
..... Patient: ERNESTO CURRAN JR OrderSheet [facility] VisitID: [id number] [place] [address] 46y, M Registration Date/Time: 12/25/2016 ORDER SHEET Weight: 92.9 kg (stated) Allergies: Sulfa Antibiotics GENERAL ORDERS: EKG - ER Stat (14:50 12/25/2016 Carine R.N. per protocol) (14:55 PWeiler ER Tech1) Oxygen (2 L/min) (NC) (15:09 12/25/2016 HBivens A.R.N.P.) (15:12 KKnebel R.N.) (Ack 15:12 OHernandez) Ammunition Assembly Ii Laborer (Continuous) (15:12/25/2016 HBivens A.R.N.P.) (15:12 KKnebel R.N.) (Ack 15:12 OHernandez) Chest 1V Urgent (15:12/25/2016 HBivens A.R.N.P.) (Ack 15:12 OHernandez) (18:20 KKnebel R.N.) CBC w Diff Urgent (15:12/25/2016 HBivens A.R.N.P.) (15:12 KKnebel R.N.) (Ack 15:12 OHernandez) CMP Urgent (15:12/25/2016 HBivens A.R.N.P.) (15:12 KKnebel R.N.) (Ack 15:12 OHernandez) D-Dimer Urgent (15:12/25/2016 HBivens A.R.N.P.) (15:12 KKnebel R.N.) (Ack 15:12 OHernandez) CPK Urgent (15:12/25/2016 HBivens A.R.N.P.) (15:12 KKnebel R.N.) (Ack 15:12 OHernandez) Troponin-I Urgent (15:12/25/2016 HBivens A.R.N.P.) (15:12 KKnebel R.N.) (Ack 15:12 OHernandez) Troponin-I Urgent (16:18 12/25/2016 HBivens A.R.N.P.) (Ack 16:21 PWeiler ER Tech1) (16:50 PWeiler ER Tech1) CPK Urgent (16:18 12/25/2016 HBivens A.R.N.P.) (Ack 16:21 PWeiler ER Tech1) (16:50 PWeiler ER Tech1) MEDICATION ORDERS: IV FLUIDS: IV Saline Lock (15:09 12/25/2016 HBivens A.R.N.P.) (15:12 Felix Walsh.Moe) ORDER SHEET NOTES: [Electronically signed by Lory Duarte.R.N.PShahzad (19:04 12/25/2016)] [Electronically signed by Yaima Qureshi R.N. (22:57 12/25/2016)] [Electronically locked/signed by Yaima Qureshi R.N. (22:57 12/25/2016)]
--- NOTE | 2016-12-25 17:17 | ED NURSING NOTES ---
Clinical Report - Nurses [facility] [address] [place] [address] 12/25/2016 14:44 Patient: ERNESTO CURRAN JR TRIAGE Triage time 14:49. Acuity: LEVEL 3. Chief Complaint: CHEST PAIN. Alert. No acute distress. LAURA COMA SCORE: Laura Coma Scale: 15- eyes open spontaneously (4); best verbal response- oriented x 4 (5); best motor response- obeys commands (6). --14:55 Vera Goff R.N. 14:49 12/25/16. BP: 117/78. HR: 108. RR: 18. O2 saturation: 96%. Temp: 97.6 F (oral). Pain level now: 0/10. --14:55 Vera Goff R.N. Weight: 92.9 kg stated. Height/Length: 69 inches Per Patient. BMI: 30.3. --14:53 Vera Goff R.N. Medications Citalopram Hydrobromide Oral (Tablet 10 mg), daily. --14:52 Vera Goff R.N. RisperiDONE Oral 1 mg, daily. --14:52 Vera Goff R.N. Medication/allergy information source: the patient. --14:55 Vera Goff R.N. Allergies Sulfa Antibiotics. --14:52 Vera Goff R.N. History Arrived by private vehicle. Historian: patient. Primary physician (Rupert). Onset. (about 2 days). Describes the quality as (intermittent). Relates location as in the central chest area. Notes pain level as 0/10 on arrival and 7/10 at maximum. Provoking / relieving factors: worsened by supine position. Relieved by nothing. The patient has had difficulty breathing. No sweating episodes, nausea or vomiting. SOCIAL HX: Heavy tobacco smoker- less than 1 pack per day. No alcohol use or drug use. FALL RISK ASSESSMENT: Fall risk assessment completed. No fall risk identified. FUNCTIONAL ASSESSMENT: Functional assessment: no impairments noted. LEARNING NEEDS ASSESSMENT: The learning needs assessment revealed no barriers. --14:55 Vera Goff R.N. PROBLEMS: Appendicitis. Hallucinations. --14:53 Vera Goff R.N. ADDITIONAL SURGERIES: Appendectomy. Cheek. Hernia Repair. Inguinal Hernia Repair. --14:53 Vera Goff R.N. Assessment GENERAL / NEURO / PSYCH: Alert. Oriented X 4. Appears in no acute distress. Patient appears calm and cooperative. RESPIRATORY: Respirations not labored. SKIN: Skin is warm and dry. --14:55 Vera Goff R.N. Interventions ID and allergy band on patient. To treatment room. --14:55 Vera Goff R.N. PHYSICAL ASSESSMENT 14:55 12/25/16. Ambulatory to room. Patient gowned. GENERAL / NEURO / PSYCH: Alert. Oriented X 4. Appears in no acute distress. RESPIRATORY: Respirations not labored. SKIN: Skin is warm and dry. --14:55 Vera Goff R.N. NURSING PROGRESS NOTES 14:56 12/25/16. case monitor, pulse oximeter and NIBP monitor placed on patient. Patient gowned. Head of bed elevated. Call light placed in reach. Side rails up x 1. Bed placed in lowest position. Brakes of bed on. --14:56 Vera Goff R.N. 15:00 12/25/16. CVS: Cardiac rhythm: sinus tachycardia. --15:00 Vera Goff R.N. EKG time: (1452). EKG was ordered, performed by a tech and shown to the ED physician. --15:04 Elvia Kovacs 15:11 12/25/2016 Site #1 started via IV in the left antecubital space with an 20g angiocath, with aseptic technique and good blood return; two attempts. Blood drawn: rainbow set. Labeled in the presence of the patient and sent to the lab. Saline lock flushed. --15:11 Yaima Qureshi R.N. The patient is calm and resting quietly. Overall patient status is the same- he states feels the same. RESPIRATORY: Denies difficulty breathing. No respiratory distress. CVS: Denies chest pain. SKIN: Skin is warm and dry. Skin color within normal limits. --16:07 Yaima Qureshi R.N. 16:07 12/25/16. BP: 115/71. HR: 97. RR: 21. O2 saturation: 96%. Pain level now: 0/10. --16:07 Yaima Qureshi R.N. 16:15 12/25/2016 IV Saline Lock Drip IV Discontinued: bag #1 infused. Total amount infused: 1000 mL. IV patency established. IV site checked: no pain, redness, or swelling. IV flushed thoroughly. --22:57 Yaima Qureshi R.N. DISPOSITION / DISCHARGE Departure time: 18:30 Dec 25 2016. Condition at departure: improved. No learning barriers present. Discharge instructions provided and reviewed with the patient. Reviewed referral to a primary care physician for followup. Patient verbalized understanding. Written instructions provided in Djib[place]. The patient was discharged home. He left the Emergency Department ambulatory and via private vehicle. Patient driving. FALL RISK ASSESSMENT: Fall risk assessment completed. No fall risk identified. --18:30 Yaima Qureshi R.N. 18:27 12/25/16. BP: 114/81. HR: 79. RR: 23. O2 saturation: 95%. Pain level now: 0/10. --18:30 Yaima Qureshi R.N. Locked/Released at 12/25/2016 22:57 by Yaima Qureshi R.N.
--- NOTE | 2016-12-25 17:17 | ED ORDER SUMMARY ---
..... Patient: ERNESTO CURRAN JR OrderSheet [facility] VisitID: [id number] [place] [address] 46y, M Registration Date/Time: 12/25/2016 ORDER SHEET Weight: 92.9 kg (stated) Allergies: Sulfa Antibiotics GENERAL ORDERS: EKG - ER Stat (14:50 12/25/2016 Carine R.N. per protocol) (14:55 PWeiler ER Tech1) Oxygen (2 L/min) (NC) (15:09 12/25/2016 HBivens A.R.N.P.) (15:12 KKnebel R.N.) (Ack 15:12 OHernandez) Document Design Specialist (Continuous) (15:12/25/2016 HBivens A.R.N.P.) (15:12 KKnebel R.N.) (Ack 15:12 OHernandez) Chest 1V Urgent (15:12/25/2016 HBivens A.R.N.P.) (Ack 15:12 OHernandez) (18:20 KKnebel R.N.) CBC w Diff Urgent (15:12/25/2016 HBivens A.R.N.P.) (15:12 KKnebel R.N.) (Ack 15:12 OHernandez) CMP Urgent (15:12/25/2016 HBivens A.R.N.P.) (15:12 KKnebel R.N.) (Ack 15:12 OHernandez) D-Dimer Urgent (15:12/25/2016 HBivens A.R.N.P.) (15:12 KKnebel R.N.) (Ack 15:12 OHernandez) CPK Urgent (15:12/25/2016 HBivens A.R.N.P.) (15:12 KKnebel R.N.) (Ack 15:12 OHernandez) Troponin-I Urgent (15:12/25/2016 HBivens A.R.N.P.) (15:12 KKnebel R.N.) (Ack 15:12 OHernandez) Troponin-I Urgent (16:18 12/25/2016 HBivens A.R.N.P.) (Ack 16:21 PWeiler ER Tech1) (16:50 PWeiler ER Tech1) CPK Urgent (16:18 12/25/2016 HBivens A.R.N.P.) (Ack 16:21 PWeiler ER Tech1) (16:50 PWeiler ER Tech1) MEDICATION ORDERS: IV FLUIDS: IV Saline Lock (15:09 12/25/2016 HBivens A.R.N.P.) (15:12 Felix Walsh.Moe) ORDER SHEET NOTES: [Electronically signed by oLry Duarte.R.N.PShahzad (19:04 12/25/2016)] [Electronically signed by Yaima Qureshi R.N. (22:57 12/25/2016)] [Electronically locked/signed by Yaima Qureshi R.N. (22:57 12/25/2016)]
--- NOTE | 2016-12-25 22:58 | ED MAR SUMMARY ---
..... Medication Administration Record [facility] [address] [place], [place] [id number] Patient: ERNESTO CURRAN Visit ID: [id number] 46y, M Weight: 92.9 kg Height/Length: 69 in BMI: 30.3 ALLERGIES: Sulfa Antibiotics
--- NOTE | 2016-12-25 22:58 | ED DISCHARGE INSTRUCTIONS ---
Patient: ERNESTO CURRAN JR General Instructions [facility] VisitID: [id number] [place] [address] 46y, M Registration Date/Time: 12/25/2016 Chest pain characterized as "discomfort" .12 lead EKG performed. INSTRUCTIONS Warnings: GENERAL WARNINGS: Return or contact your physician immediately if your condition worsens or changes unexpectedly, if not improving as expected, or if other problems arise. SPECIFICALLY, return if you develop chest, neck, jaw, shoulder, arm, or back pain, difficulty breathing, a fluttering sensation in your chest, lightheadedness, fainting, excessive fatigue, or sudden sweating. Follow-up: Follow up with your doctor in about two days even if well. Call for an appointment. Summary of care provided to patient. Understanding of the discharge instructions verbalized by patient. ADDITIONAL INFORMATION Chest Pain, Uncertain Cause Chest pain can happen for a number of reasons. Sometimes the cause can not be determined. If yourcondition does not seem serious, and your pain does not appear to be coming from your heart, your doctor may recommend watching it closely. Sometimes the signs of a serious problem take more time to appear. Therefore, watch for the warning signs listed below. Home care After your visit, follow these recommendations: Rest today and avoid strenuous activity. Take any prescribed medicine as directed. Follow-up care Follow up with your doctor or this facility as instructed or if you do not start to feel better within 24 hours. Call 911 Get immediate medical attention if any of the following occur: A change in the type of pain: if it feels different, becomes more severe, lasts longer, or begins to spread into your shoulder, arm, neck, jaw or back Shortness of breath or increased pain with breathing Weakness, dizziness, or fainting Rapid heart beat Get prompt medical attention Call your doctor right away if any of the following occur: Cough with dark colored sputum (phlegm) or blood Fever of 100.4F(38C) or higher, or as directed by your health care provider Swelling, pain or redness in one leg Chest Wall Pain: Costochondritis The chest pain that you have had today is caused by Costochondritis. This condition is due to an inflammation of the cartilage joining the ribs to the breastbone. It is not caused by heart or lung problems. Although the exact cause for costochondritis is not known, it often occurs during times of emotional stress. It can be painful, but it is not dangerous. It usually disappears within one to two weeks, but may recur. Rarely, a more serious condition may cause symptoms similar to costochondritis; therefore, watch for the warning signs listed below. Home Care: If you feel that emotional stress is a cause of your condition, try to identify sources of that stress. It may not be obvious! Learn ways to deal with the stress in your life such as regular exercise, muscle relaxation, meditation, or simply taking time out for yourself. For more information about this, consult your doctor or go to a local bookstore and review books and tapes available on the subject of stress reduction. You may use acetaminophen (Tylenol) or ibuprofen (Motrin, Advil) to control pain, unless another pain medicine was prescribed. [ NOTE: If you have liver disease or ever had a stomach ulcer, talk with your doctor before using these medicines.] The use of heat (hot wet compress or heating pad) with or without local analgesic creams (Deep Heat Rub, Paul Ortiz) will be helpful to reduce pain. Follow Up with your doctor as directed or sooner if you do not start to improve within the next two days. Get Prompt Medical Attention if any of the following occur: A change in the type of pain: if it feels different, becomes more severe, lasts longer, or spreads into your shoulder, arm, neck, jaw or back Shortness of breath or increased pain with breathing Weakness, dizziness, or fainting Cough with dark colored sputum (phlegm) or blood Abdominal pain Dark red or black stools Fever of 100.4F (38C) or higher, or as directed by your healthcare provider Chest Pain, Noncardiac Based on your visit today, the exact cause of your chest pain is not certain. Your condition does not seem serious and your pain does not appear to be coming from your heart. However, sometimes the signs of a serious problem take more time to appear. Therefore, please watch for the warning signs listed below. Home Care: Rest today and avoid strenuous activity. Take any prescribed medicine as directed. Follow Up with your doctor or this facility as instructed or if you do not start to feel better within 24 hours. Get Prompt Medical Attention if any of the following occur: A change in the type of pain: if it feels different, becomes more severe, lasts longer, or begins to spread into your shoulder, arm, neck, jaw or back Shortness of breath or increased pain with breathing Cough with dark colored sputum (phlegm) or blood Weakness, dizziness, or fainting Fever of 100.4F (38C) or higher, or as directed by your healthcare provider Swelling, pain or redness in one leg Esophageal Spasm The esophagus is a muscular tube that joins your mouth to your stomach. Normal waves of contraction help food move down the esophagus to reach the stomach. Esophageal spasms are abnormal contractions of these muscles. When the muscles are in spasm it may feel like the food is stuck and wont go down. It may cause a feeling of heartburn or a squeezing type of chest pain that can feel just like heart pain (angina). The pain may spread to the neck, arm or back. If you try to swallow more food or liquid during a spasm, it may come back up within seconds. The cause of esophageal spasm is not known but it is more common in people with acid reflux disease (also called "GERD" or "Esophagitis"). Very hot or very cold foods or foods that are not chewed enough before swallowing may trigger an episode. Special tests may be ordered to confirm the diagnosis if there is doubt. Medicine is used to prevent or treat symptoms in most cases. Severe symptoms can be treated with surgery. Home Care: If you are prone to acid reflux and heartburn symptoms, your doctor may prescribe acid-blocking medicine. If not, you can use over the counter medicines as a preventive if you get symptoms often. The following medicines are available without a prescription: Antacids: Neutralize stomach acid. (such as Gaviscon, Mylanta, Tums or Rolaids) Acid-Blockers: Reduce the production of acid in the stomach. (Axid, Pepcid-AC, Tagamet-HB, Zantac, Prilosec-OTC). Learn to recognize if certain foods are causing your spasm and avoid these. Avoid very hot and very cold foods if this is a trigger for you. Eat slowly and chew food well before swallowing. Follow Up with your doctor or as advised by our staff. Get Prompt Medical Attention if any of the following occur: Chest pain or pain in the neck, back, shoulder or arm that does not respond to the treatment recommended Food that feels "stuck" in the esophagus for more than 30 minutes Inability to swallow solid or liquids for more than 30 minutes Symptoms that feel like esophageal spasm but occur with heavy sweating, dizziness, fainting or shortness of breath Change in the usual patterns of your symptoms of esophageal spasm (new pattern of spreading to the neck, back, shoulder or arm; pain that is more severe than usual) Angina, Stable The chest discomfort you have experienced today appears to be coming from your hearta condition called angina. Angina is a pain in the heart due to poor blood flow from blockage by plaque in one or more of the small blood vessels that deliver oxygen to the heart muscle itself. Plaque is a fatty material made up of cholesterol and other particles that build up within the artery wall. Exercise, increased activity, emotional upset, or stress can trigger this pain. With proper treatment and lifestyle changes to reduce risk factors, most people with angina are able to maintain a full and active life. Angina is not a heart attack. But if angina pain is severe or prolonged, it can lead to a heart attack, also called acute myocardial infarction, or AMI. Your angina is under control at this time. Therefore, it is safe for you to go home. Home Care Rest at home today and avoid any strenuous activity. Take medicine (usually nitroglycerin) for chest pain exactly as prescribed. Keep your nitroglycerin with you at all times. When taking nitroglycerin for angina, sit or lie down. The medication may make you feel dizzy. Place one tablet under your tongue, or between your lip and gum, or between your cheek and gum. Let the tablet dissolve completely; do not chew or swallow the tablet. If you use a spray, then spray once on orunder your tongue. Do not inhale. Close your mouth. Wait a few seconds before you swallow. After taking one tablet or spraying once, continue sitting or lying for 5 minutes. If the angina goes away completely, rest awhile and continue your normal routine. If the angina continues or gets worse, CALL 911 immediately. Do NOT delay. You may be having a heart attack! After you call 911, take a second tablet. Or, spray a second time. Wait another 5 minutes. If the angina still does not go away, take a third tablet, or spray a third time. Do not take more than 3 tablets, or spray more than 3 times, within 15 minutes. Stay on the phone with 911 for further instructions. Note: Your healthcare provider may give you slightly different instructions than those above. If so, follow them carefully. Prevention Learn how to take your own blood pressure. Keep a record of your results. Ask your doctor which readings mean that you need medical attention. Maintain a healthy weight. Get help to lose any extra pounds. Cut back on salt. Limit canned, dried, packaged, and fast foods. Dont add salt to your food at the table. Season foods with herbs instead of salt when you cook. Begin an exercise program. Ask your doctor how to get started. You can benefit from simple activities such as walking or gardening. Break the smoking habit. Enroll in a stop-smoking program to improve your chances of success. Avoid stressful situations. Learn stress-management techniques. Follow Up with your doctor as instructed. If an x-ray or ECG (electrocardiogram) was done , it will be reviewed by another specialist. You will be notified of any new findings that may affect your care. Get Prompt Medical Attention if any of the following occur: Your pain recurs and is not relieved by your usual dose of nitroglycerin Shortness of breath or increased pain with breathing Angina with weakness, dizziness, fainting, heavy sweating, nausea, or vomiting A change in the type of pain: It feels different Becomes more severe Lasts longer or occurs more often Spreads to new areas (shoulder, arm, neck, jaw, or back) Less exertion required before the pain appears Extreme drowsiness, confusion Dizziness or vertigo (dizziness with spinning sensation) Weakness of an arm or leg or one side of the face Difficulty with speech or vision You have been given the following additional information: Chest Pain, Uncertain Cause Chest Wall Pain, Costochondritis Chest Pain, Noncardiac Esophageal Spasm Angina, Stable (Electronically signed by Lory Duarte A.R.N.P. 12/25/2016 19:04)
--- NOTE | 2016-12-25 22:58 | ED MED RECONCILIATION SUMMARY ---
Patient: ERNESTO CURRAN JR Medication Reconciliation Report [facility] VisitID: [id number] [address] [place] [address] 46y, M Registration Date/Time: 12/25/2016 Weight: 92.9 kg Height/Length: 69 in. BMI: 30.3 ALLERGIES: Sulfa Antibiotics The patient's Home Medications are listed below: THE FOLLOWING MEDICATIONS NEED TO BE RECONCILED: Citalopram Hydrobromide Oral (10 mg), daily RisperiDONE Oral 1 mg, daily The source(s) of the original Home Medication information: patient The following Medications were given to the patient in the Emergency Department: None. The following Medications were prescribed to the patient: None.
--- NOTE | 2016-12-25 22:58 | ED MAR SUMMARY ---
..... Medication Administration Record [facility] [address] [place], [place] [id number] Patient: ERNESTO CURRAN Visit ID: [id number] 46y, M Weight: 92.9 kg Height/Length: 69 in BMI: 30.3 ALLERGIES: Sulfa Antibiotics
--- NOTE | 2016-12-25 22:58 | ED MED RECONCILIATION SUMMARY ---
Patient: ERNESTO CURRAN JR Medication Reconciliation Report [facility] VisitID: [id number] [address] [place] [address] 46y, M Registration Date/Time: 12/25/2016 Weight: 92.9 kg Height/Length: 69 in. BMI: 30.3 ALLERGIES: Sulfa Antibiotics The patient's Home Medications are listed below: THE FOLLOWING MEDICATIONS NEED TO BE RECONCILED: Citalopram Hydrobromide Oral (10 mg), daily RisperiDONE Oral 1 mg, daily The source(s) of the original Home Medication information: patient The following Medications were given to the patient in the Emergency Department: None. The following Medications were prescribed to the patient: None.
== END 2016-12-25 18:30 | disposition home or self-care (01) ==
LOC: ED SRH 14:41
DX: R07.89 Other chest pain (principal); Z79.899 Other long term (current) drug therapy; F17.210 Nicotine dependence, cigarettes, uncomplicated; Z88.2 Allergy status to sulfonamides
CPT/HCPCS: 90074; 90100; 90616; 91556; 92610; 95059